=== PATIENT | female | born 1975 | race Caucasian/White ===

== ENCOUNTER 2018-07-19 06:22 | Day surgery (SDC) | payer BC ==
[2018-07-18 09:09] VITALS: BMI 23.3
[2018-07-18 10:09] LABS: Hemoglobin 12.1 g/dL (12.0-16.0); Mean Corpuscular HGB CONC 33.5 g/dL (32.0-36.0); Mean Corpuscular Volume 86.5 fL (78.0-98.0); Mean Platelet Volume 7.9 fL (7.4-10.4); Platelet Count 291 thou/uL (130-400); RBC Distribution Width 14.6 % (11.5-14.5); Red Blood Cell (RBC) Count 4.17 mill/uL (4.20-5.40); White Blood Cell (WBC) Count 4.7 thou/uL (4.8-10.8)
[2018-07-18 10:16] LABS: BHCG - Serum Negative (NEGATIVE); Pregs Control Background? CLEAR/WHITE (CLR/WHITE); Pregs Control Bar Appear? YES (CONTROL BAR)
[2018-07-18 10:27] LABS: ALT (SGPT) 49 U/L (8-55); AST (SGOT) 32 U/L (5-34); Albumin 4.2 g/dL (3.5-5.0); Alkaline Phosphatase 78 U/L (40-150); Anion Gap 10 mmol/L (10-20); BUN (Urea Nitrogen) 9 mg/dL (7.0-18.7); Bilirubin, Direct 0.1 mg/dL (0.1-0.3); Bilirubin, Total 0.2 mg/dL (0.2-1.2); Calc. Creatinine Clearance 112 mL/min (70-130); Calcium 10.4 mg/dL (7.8-10.44); Carbon Dioxide 27 mmol/L (22-29); Chloride 107 mmol/L (98-107); Estimated GFR-MDRD Greater than 90; Glucose 96 mg/dL (70-105); Potassium 3.6 mmol/L (3.5-5.1); Sodium 140 mmol/L (136-145)
[2018-07-19] MEDS ORDERED: Fentanyl 100 MCG/2 ML VIAL ONE ×2 (06:58→08:51)
[2018-07-19] MEDS ORDERED: Famotidine/PF 20 mg/2ml Vial ONE (07:12)
[2018-07-19] MEDS ORDERED: Midazolam HCl 2 mg/2 ml Vial ONE (07:18)
[2018-07-19] MEDS ORDERED: Dexamethasone 20 MG/5 ML VIAL ONE (08:40)
[2018-07-19] MEDS ORDERED: Ondansetron PF 4 MG/2 ML Vial ONE (08:40)
[2018-07-19] MEDS ORDERED: PROPOFOL 200 MG/20 ML VIAL ONE (08:40)
[2018-07-19] MEDS ORDERED: Ketorolac Tromethamine 30 MG/ML VIAL ONE (08:40)
[2018-07-19] MEDS ORDERED: Lidocaine 1% PF 5 ML VIAL ONE (08:40)
[2018-07-19] MEDS ORDERED: Propofol 500 MG/50 ML VIAL ONE (08:51)
--- NOTE | 2018-07-19 12:40 | OP ---
DATE OF PROCEDURE: 07/19/2018 PREOPERATIVE DIAGNOSIS: Menorrhagia. POSTOPERATIVE DIAGNOSIS: Menorrhagia. PROCEDURES PERFORMED: Hysteroscopy, dilation and curettage, and Mirian endometrial ablation. 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 ANESTHESIA: General LMA. ESTIMATED BLOOD LOSS: 20 mL. IVF: 1 L crystalloid. URINE OUTPUT: 150 mL clear urine. PATHOLOGY: Endometrial curettings. COMPLICATIONS: None. DRAINS: None. FINDINGS: On exam under anesthesia, mobile 10-week size uterus sounded to 9.5 cm. On hysteroscopic exam, bilateral tubal ostia were visualized. The endometrium appeared proliferative. There were several polypoid-like projections that were removed with the D and C. Following the ablation, there was a good manuel noted to all uterine mckinnon and fluid deficit for the case was 10 mL. Normal saline was used as a distention media. OPERATIVE TECHNIQUE: The patient was taken to the operating room, where general anesthesia was obtained without difficulty. The patient was prepped and draped in a sterile fashion in a dorsal lithotomy position. A red rubber was used to drain the bladder. A speculum was placed in the vagina. The anterior lip of the cervix grasped with single-tooth tenaculum. The uterus was then sounded to 9.5 cm. The cervix was progressively dilated with Saran dilators and a 5 mm hysteroscope was assembled using normal saline as distention media and inserted into the uterus with the above findings noted. Photo documentation was performed and the hysteroscope was removed. Sharp curettage was performed and a large amount of tissue returned as the patient was currently on her menstrual cycle. This was sent for final pathology. The hysteroscope was then inserted into the uterus again to ensure that all of the polyp like projections and shaggy endometrium had been removed, which has had. The hysteroscope was removed. The Mirian ablation device was assembled. During the hysteroscopic exam, the cervical length was measured and was noted to be 4 cm making the cavity length 5.5 cm. This was dialed into the Mirian ablation device. The array was then collapsed and inserted into the uterine fundus and the array was deployed. The width of the cavity was noted to be in the green zone. The cavity check was performed and passed. An endometrial ablation was performed for a total of 120 seconds. The array was then collapsed and removed out of the patient. The hysteroscope was reinserted into the uterus, noting a good manuel to the uterine wall and all instruments were removed out of the vagina. This cervix was noted to be hemostatic. Again, fluid deficit for the case was 10 mL. The patient tolerated the procedure well. Sponge, lap, and needle counts were correct x2. The patient was taken to recovery room in stable condition. The patient received Ancef 2 g prior to the procedure. Job ID: [id number]
== END 2018-07-19 10:13 | disposition home or self-care (01) ==
LOC: SDC 06:22
PROVIDERS: ATTEND Student in an Organized Health Care Education/Training Program
PROC: 0UDB8ZX Extraction of Endometrium, Via Natural or Artificial Opening Endoscopic, Diagnostic (ICD-10-PCS; principal; 2018-07-19)
PROC: 0U5B8ZZ Destruction of Endometrium, Via Natural or Artificial Opening Endoscopic (ICD-10-PCS; principal; 2018-07-19)
DX: N84.0 Polyp of corpus uteri (principal); N71.0 Acute inflammatory disease of uterus; E03.9 Hypothyroidism, unspecified; M19.90 Unspecified osteoarthritis, unspecified site; Z79.52 Long term (current) use of systemic steroids; Z79.899 Other long term (current) drug therapy
CPT/HCPCS: 36415; 80048; 80076; 84703; 85027; 86850; 86900; 86901; 88305; J0131; J1100; J1885; J2001; J2250; J2405; J2704; J3010; S0028

== ENCOUNTER 2019-03-09 03:58 | Emergency (ER) | payer BC ==
[2019-03-09] MEDS ORDERED: Metoclopramide HCl 10 MG/2 ML VIAL ONE (04:18)
[2019-03-09] MEDS ORDERED: Ketorolac Tromethamine 30 MG/ML VIAL ONE (04:18)
[2019-03-09] MEDS ORDERED: diphenhydrAMINE 50 MG/ML VIAL ONE (04:18)
--- NOTE | 2019-03-09 08:01 | RAD ---
EXAM: Two views chest PROVIDED CLINICAL HISTORY: Flulike symptoms which have worsened. COMPARISON: None FINDINGS: Cardiac silhouette and pulmonary vasculature are within normal limits. The lungs are clear. The osse ous structures have a normal appearance. IMPRESSION: No acute cardiopulmonary process.
== END 2019-03-09 05:34 | disposition home or self-care (01) ==
LOC: ERS 03:58
DX: J11.1 Influenza due to unidentified influenza virus with other respiratory manifestations (principal); D64.9 Anemia, unspecified; E03.9 Hypothyroidism, unspecified; M06.9 Rheumatoid arthritis, unspecified; Z79.899 Other long term (current) drug therapy
CPT/HCPCS: 71046; 96361; 96365; 96375; J1200; J1885; J2765

== ENCOUNTER 2020-06-07 13:30 | Outpatient (CLI) | payer OTHER ==
--- NOTE | 2020-06-07 14:12 | MMO ---
Right Breast MAMMO Unilat Diag DDI RT+ERIC. CLINICAL HISTORY: Patient is 45 years old and is seen for additional evaluation requested from prior study. The patient has no family history of breast cancer. The patient has no personal history of cancer. VIEWS: The views performed were: right craniocaudal spot compression with tomosynthesis; right mediolateral oblique spot compression with tomosynthesis; and right mediolateral with tomosynthesis. FILMS COMPARED: The present examination has been compared to prior imaging studies performed at [facility] on 04/14/2019 and 04/19/2020. This study has been interpreted with the assistance of computer-aided detection. MAMMOGRAM FINDINGS: The breast is heterogeneously dense, which could obscure a lesion on mammography. There are no suspicious masses, suspicious calcifications, or new areas of architectural distortion. The asymmetry seen at screening mammography does not persist at additional imaging, compatible with superimposed tissue. IMPRESSION: THERE IS NO MAMMOGRAPHIC EVIDENCE OF MALIGNANCY. A ROUTINE FOLLOW-UP MAMMOGRAM IN 1 YEAR IS RECOMMENDED. THE RESULTS OF THIS EXAM WERE SENT TO THE PATIENT. ACR BI-RADS Category 1 - Negative MAMMOGRAPHY NOTE: 1. A negative mammogram report should not delay a biopsy if a dominant of clinically suspicious mass is present. 2. Approximately 10% to 15% of breast cancers are not detected by mammography. 3. Adenosis and dense breasts may obscure an underlying neoplasm. Reported by: MIRIAM VARELA MD Electonically Signed: [id number]
== END 2020-06-07 13:31 | disposition home or self-care (01) ==
LOC: BICMAMMO 13:30
PROVIDERS: ATTEND Advanced Practice Midwife
DX: R92.8 Other abnormal and inconclusive findings on diagnostic imaging of breast (principal)
CPT/HCPCS: G0279